=== PATIENT | female | born 1970 | race Caucasian/White ===

== ENCOUNTER 2018-10-27 21:04 | Emergency (ER) | payer BC ==
[2018-10-27 21:15] VITALS: BP 123/68; PULSE 77; RESP 18; TEMP 98.5
--- NOTE | 2018-10-27 21:30 | ED ---
Fall HPI - General Chief Complaint: Fall Stated Complaint: Fall-Head Injury Time Seen by Provider: 10/27/18 21:18 Source: patient Mode of arrival: ambulatory - History of Present Illness Initial Comments: 48 year-old female patient presents to the emergency department today for evaluation after sustaining a fall. Patient states she was on the ladder and the bathroom when she fell from approximately 3 feet up. States she fell into the tub did strike her forehead and her right hand. Patient denies any current pain or discomfort. She denies loss of consciousness with this. Denies any headache, dizziness, weakness, blurred vision, double vision, neck pain, or back pain. Denies any significant pain to the right hand however reports the area is bruised. She denies taking any medication for her symptoms. Patient denies any chest pain, shortness of breath, abdominal pain, nausea, vomiting, or difficulties with bowel movements or urination. She denies taking any antic oagulants or antiplatelet medications. - Related Data Allergies Allergy/AdvReac Type Severity Reaction Status Date / Time No Known Allergies Allergy Verified 10/27/18 21:15 Review of Systems ROS Statement: Those systems with pertinent positive or pertinent negative responses have been documented in the HPI. ROS Other: All systems not noted in ROS Statement are negative. Past Medical History Past Medical History: No Reported History History of Any Multi-Drug Resistant Organisms: None Reported Past Surgical History: Orthopedic Surgery Past Psychological History: No Psychological Hx Reported Smoking Status: Never smoker Past Alcohol Use History: None Reported Past Drug Use History: None Reported General Exam Limitations: no limitations General appearance: alert, in no apparent distress, other (His is a well- developed, well-nourished adult female patient in no acute distress. Vital signs upon presentation are temperature 98.5F, pulse 77, respirations 18, blood pressure 123/68, pulse ox 100% on room air.) Head exam: Present: other (There is ecchymosis noted over the left frontal/forehead region. No bony step-off or deformity noted to palpation around the area.) Eye exam: Present: normal appearance, PERRL, EOMI. Absent: scleral icterus, conjunctival injection, nystagmus, periorbital swelling ENT exam: Present: normal exam, normal oropharynx, mucous membranes moist, TM's normal bilaterally Neck exam: Present: normal inspection, full ROM, other (Nontender, no step-off, no deformity to firm midline palpation of the posterior cervical spine. Full range of motion without pain or limitation.). Absent: tenderness, meningismus, lymphadenopathy Respiratory exam: Present: normal lung sounds bilaterally. Absent: respiratory distress, wheezes, rales, rhonchi, stridor Cardiovascular Exam: Present: regular rate, normal rhythm, normal heart sounds. Absent: systolic murmur, diastolic murmur, rubs, gallop, clicks GI/Abdominal exam: Present: soft, normal bowel sounds. Absent: distended, tenderness, guarding, rebound, rigid Extremities exam: Present: full ROM, normal capillary refill, other (Patient is ecchymosis noted to the thenar eminence on the right hand. Patient has full range of motion of the thumb. Mild tenderness. No anatomical snuffbox tenderness. Full range of motion of the wrist). Absent: normal inspection, tenderness, pedal edema, joint swelling, calf tenderness Back exam: Present: normal inspection, other (Nontender, no step-off, no deformity to firm midline palpation of the thoracic and lumbar vertebrae. Full range of motion without pain or limitation.). Absent: vertebral tenderness Neurological exam: Present: alert, oriented X3, CN II-XII intact Psychiatric exam: Present: normal affect, normal mood Skin exam: Present: warm, dry, intact, normal color. Absent: rash Course Vital Signs 10/27/18 21:11 Temperature 98.5 F Pulse Rate 77 Respiratory 18 Rate Blood Pressure 123/68 O2 Sat by Pulse 100 Oximetry Medical Decision Making - Medical Decision Making 48 old female patient presented to the emergency department today for evaluation after experiencing a fall. Patient does report hitting her head and her right hand however denies any current pain or symptoms. I did offer to x-ray of the hand however she declined stating that she did not feel was broken. Neurovascular status and range of motion were intact. Some mild tenderness over any area of ecchymosis. Patient is neurologically intact with no focal deficits. Denies any current headache. Did discuss signs or symptoms of worsening head injury. She is instructed to ice the painful areas. She is instructed to follow-up with her primary care physician for recheck as soon as possible. Return parameters were discussed in detail. She verbalizes understanding and agrees with this plan. Disposition Clinical Impression: Head injury, Contusion of right hand Disposition: HOME SELF-CARE Condition: Good Instructions (If sedation given, give patient instructions): Head Injury (ED), Contusion in Adults (ED) Additional Instructions: Monitor for signs or symptoms of worsening head injury including but not limited to headache, dizziness, weakness, blurred vision, double vision, vomiting, or confusion. Follow-up with your primary care physician for recheck in 1-2 days. Ice painful areas. Return to the emergency department immediately for any new, worsening, or concerning symptoms. Is patient prescribed a controlled substance at d/c from ED?: No Referrals: None,Stated [Primary Care Provider] - 1-2 days Time of Disposition: 21:30
== END 2018-10-27 21:50 | disposition home or self-care (01) ==
LOC: EC 21:04
DX: S60.221A Contusion of right hand, initial encounter (principal); S00.83XA Contusion of other part of head, initial encounter; Z53.29 Procedure and treatment not carried out because of patient's decision for other reasons; W11.XXXA Fall on and from ladder, initial encounter; Y92.002 Bathroom of unspecified non-institutional (private) residence as the place of occurrence of the external cause
CPT/HCPCS: 99283